=== PATIENT | male | born 1955 | race Caucasian/White ===

== ENCOUNTER → 2023-07-06 06:25 | Day surgery (SDC) | payer MEDICARE, SELFPAY | LOC: GI 06:25 | PROVIDERS: ATTENDING PHYSICIAN Surgery | DX: Z12.11 Encounter for screening for malignant neoplasm of colon (principal); Z86.010 Personal history of colon polyps; K64.8 Other hemorrhoids; D12.1 Benign neoplasm of appendix; D12.3 Benign neoplasm of transverse colon; K62.1 Rectal polyp; K63.5 Polyp of colon | CPT/HCPCS: 45385; 45380; 88305 ==

== ENCOUNTER → 2023-10-15 06:28 | Outpatient (REF) | payer MEDICARE, SELFPAY ==
[2023-10-15 12:05] LABS: Folate 8.5 ng/ml (2.76-20); Vitamin B12 313 pg/ml (239-931)
== END ==
LOC: REG 06:28
PROVIDERS: ATTENDING PHYSICIAN Internal Medicine
DX: Z86.73 Personal history of transient ischemic attack (TIA), and cerebral infarction without residual deficits (principal); R26.89 Other abnormalities of gait and mobility; R41.3 Other amnesia
CPT/HCPCS: 36415; 82607; 82746

== ENCOUNTER → 2023-11-30 17:36 | Outpatient (REF) | payer MEDICARE, SELFPAY | LOC: PAVMRI 17:36 | PROVIDERS: ATTENDING PHYSICIAN Internal Medicine | DX: I10 Essential (primary) hypertension (principal); C67.9 Malignant neoplasm of bladder, unspecified; Z86.73 Personal history of transient ischemic attack (TIA), and cerebral infarction without residual deficits; R26.89 Other abnormalities of gait and mobility; R41.3 Other amnesia | CPT/HCPCS: 70551 ==

== ENCOUNTER → 2024-02-03 06:45 | Outpatient (REF) | payer MEDICARE, SELFPAY | LOC: RAD 06:45 | PROVIDERS: ATTENDING PHYSICIAN Internal Medicine Critical Care Medicine; FAMILY PHYSICIAN Internal Medicine | DX: Z87.891 Personal history of nicotine dependence (principal) | CPT/HCPCS: 71271 ==

== ENCOUNTER 2024-05-09 13:15 | Emergency (ER) | payer OTHER, SELFPAY ==
[2024-05-09 13:17] VITALS: BP 108/67
[2024-05-09 13:50] VITALS: BP 115/69
[2024-05-09 13:51] VITALS: BMI 26.5
[2024-05-09 14:00] VITALS: BP 117/69
[2024-05-09] MEDS: DECADRON 10 MG IV (14:10)
--- NOTE | 2024-05-09 14:10 | ED.GENMED ---
History of Present Illness
General
Chief Complaint: Change in Mental Status
Time Seen by Provider: 05/09/24 13:36
History of Present Illness
History of Present Illness:
Patient is a 69-year-old male with history of prior CVA with no residual deficits, hypertension, hyperlipidemia, AAA recent subdural s/p craniotomy presenting to the emergency department with change in his mental status. Patient was found to have a
subdural and subarachnoid hemorrhage in March. On May 03 he had a craniotomy with subdural drain placed. It was removed without complication and he was discharged. Yesterday patient started to develop some confusion and slurring of his
speech. He was stuttering. He was also disoriented. He is on Keppra for his subdural. No recurrent falls. No trauma. No fevers chills. No numbness tingling. No weakness.
Past History
Past History
ED Past Medical History: COPD, CVA, HTN and Psychiatric
ED Past Surgical History: Other (Lung biopsy)
Social History
Tobacco: Smoker
Alcohol: Occasional
Personal:
Living: with family
Family History
Family History: Other (Noncontributory)
Phy Exam
Physical Exam
Physical Exam:
GENERAL: in no acute distress
HEENT: normocephalic, extraocular movements intact, moist oral mucosa
NECK: normal inspection
RESPIRATORY: no respiratory distress, clear to auscultation bilaterally
CARDIOVASCULAR: regular rate and rhythm
ABDOMEN/: soft, non-distended, non-tender to palpation, no rebound or guarding
EXTREMITIES: non-tender, no edema/swelling
NEUROLOGIC: awake and alert, oriented x 2 dysarthria, no obvious facial droop, pupils equal reactive, equal strength in upper and lower extremities, no sensory deficits, moves all extremities
SKIN: warm
Course
Orders/Labs/Results
Orders:
Orders
05/09/24 13:[address] [CT Head W/o Iv Contrast] Urgent
Comment:
Reason For Exam: hx of subdural hematoma
05/09/24 13:50
Urinalysis Reflex To Culture Urgent
Date Specimen was Collected: 05/09/24
Time Specimen was Collected: 13:53
05/09/24 14:05
Dexamethasone Sod Phosphate [Decadron] 10 mg IV NOW STA
05/09/24 14:06
Basic Metabolic Panel Urgent
Complete Blood Count/With Diff Urgent
05/09/24 14:15
Electrocardiogram (*1) Urgent
Reason for Study: TIA/Stroke
EKG- Treatment ONCE
Abnormal Lab Results
05/09/24
14:06
RBC 4.43 L 10^6/uL
(4.70-6.10)
Absolute Monos (auto) 0.8 H 10^3/uL
(0.1-0.6)
Lymphocytes % 20.1 L %
(20.5-51.1)
Monocytes % 11.7 H %
(1.7-9.3)
Glucose 122 H mg/dl
(70-99)
05/09/24 14:06
05/09/24 14:06
Vital Signs
Initial and Last Documented VS:
Initial Vital Signs
Temp Pulse Resp BP Pulse Ox
98 F 87 16 108/67 93
05/09/24 13:17 05/09/24 13:17 05/09/24 13:17 05/09/24 13:17 05/09/24 13:17
Last Documented Vital Signs
Temp Pulse Resp BP Pulse Ox
98 F 82 14 117/69 95
05/09/24 13:17 05/09/24 14:30 05/09/24 14:30 05/09/24 14:00 05/09/24 14:30
MDM/Problems Addressed
Differential Diagnosis Includes:
Patient is a 69-year-old male with recent subdural hematoma status postcraniotomy on May 03, prior stroke with no residual deficits presenting to the emergency department with new onset confusion dysarthria that started yesterday. Vitals
unremarkable and on exam patient does have significant dysarthria and is only oriented x 2. He is slow to respond to some questions. Concern for worsening bleed versus postop complication versus CVA. CT scan was obtained per my interpretation
there is significant amount of air as well as possible new subdural. I did discuss with radiology and their read as below. Given the swelling and shift will give Decadron. Regarding the subarachnoid and possible subacute hemorrhage placed a call
to patient's neurosurgeon Dr. Adair. There is a component of subacute infarct of the left temporal lobe which does fit patient's symptoms as well. Will also check blood work urine and EKG
CT HEAD:
New findings suggesting subacute infarct of the left temporal lobe.
Moderate-sized left subdural hematoma mostly chronic in appearance but with varying densities which may represent subacute hemorrhage versus postsurgical change. Associated intracranial air probably postsurgical change. Infection cannot be excluded.
Associated mass effect and midline shift as described above (5 mm shift to right)
left-sided craniotomy. New
Findings suggesting minimal subarachnoid hemorrhage in the superior right parietal region.
Findings suggesting small old left occipital lobe infarct. Stable
Nonacute sinusitis.
Discussed with stroke neurology at [place] as well as neurosurgery. They did evaluate patient CT imaging from 05/07 and the temporal infarct was seen there. Neurosurgery recommending ED to ED transfer to [facility]. Neurology recommended CTA
imaging here however neurosurgery requested CTA to be obtained once patient arrives at [facility]. I discussed with Dr. Rivera from the emergency department who excepted. Will fly if weather permits so patient can get there soon as possible.
On reevaluation patient without any changes to exam. Patient remains stable for transfer. Pt signed out to oncoming attending pendin transfer.
*Critical Care Note
Total Time (30-74mins, 75-104mins- exclusive of procedures): 55
comment:
Critical care statement: A total of 55 minutes of critical care time was provided for this patient. This includes management of unstable vital signs, evaluation of the patient at bedside, reviewing the patient's pertinent medical records, ordering
and reviewing studies, arranging urgent treatment with development of a management plan, evaluating patient's response to treatment, frequent reassessment, and discussion with consultants. This time was separate from time utilized to perform the
aforementioned documented procedures.
ED Attending Note
-
Portions of this chart may have been created with voice recognition software.� Occasional wrong word or��sound alike� substitutions may have occurred due to the inherent limitations of voice recognition software.
Discharge Plan
Departure
Patient Disposition: Acute [facility]
Date of Disposition: 05/09/24
Time of Disposition: 15:04
Discharge Problem:
Subdural hematoma, Subarachnoid hematoma, CVA (cerebral vascular accident)
Prescriptions:
No Action
aspirin 325 MG tablet
325 mg PO DAILY 0RF
finasteride 5 MG tablet
5 mg PO QPM
omeprazole 20 MG capsule,delayed release(DR/EC)
20 mg PO DAILY
atorvastatin 40 mg Tablet
40 mg PO QPM
metoprolol succinate 50 mg Tablet Extended Release 24 Hr
75 mg PO DAILY
carbamazepine 400 mg Tablet Extended Release 12 Hr
400 mg PO BID
tadalafil 5 mg Tablet
5 mg PO DAILY PRN (Reason: .bladder/prostate)
Patient Comments:
denies taking for ED
sildenafil 100 mg Tablet
100 mg PO PRN (Reason: ED)
Patient Comments:
patient states he last took this greater than 2 weeks ago
Referrals:
Jonathon Soria MD [Family Provider] -
Hospital Transfer
Other hospital: [facility]
I certify that the patient requires transfer: Yes
Discussed case with accepting physician: dr angy rivera
Reason for transfer: specialties available
Interventions
Interventions:
*Risk Screen - Suicide Last Done: 05/09/24 13:21
*Neglect/Abuse Screening Last Done: 05/09/24 13:21
ED- Neurological Assessment Last Done: 05/09/24 13:51
ED- Cardiac Assessment Last Done: 05/09/24 13:51
ED Swallowing Screen Last Done: 05/09/24 13:51
Discharge Date and Time
Print Language: PERSIAN
[2024-05-09 14:20] LABS: % Basophils 1.6 % (0-2); % Eosinophils 2.7 % (0-6); % Immature Granulocytes 0.4 % (0-0.5); % Lymphocytes 20.1 % (20.5-51.1); % Monocytes 11.7 % (1.7-9.3); % Neutrophils 63.5 % (42.2-75.2); Absolute Basophils 0.1 10^3/uL (0-0.2); Absolute Eosinophils 0.2 10^3/uL (0-0.7); Absolute Lymphocytes 1.4 10^3/uL (1.2-3.4); Absolute Monocytes 0.8 10^3/uL (0.1-0.6); Absolute Neutrophils 4.4 10^3/uL (1.4-6.5); Hematocrit 41.1 % (39.0-52.0); Hemoglobin 13.7 g/dL (13.0-18.0); Mean Corp Hgb Conc. 33.3 g/dL (33.0-37.0); Mean Corpuscular Hgb 30.9 pg (27.0-31.0); Mean Corpuscular Volume 92.8 fL (80.0-94.0); Mean Platelet Volume 9.5 fL (7.4-10.4); Nucleated Red Blood Cells % 0 % (-); Platelet Count 273 10^3/uL (130-400); Red Blood Cell Count 4.43 10^6/uL (4.70-6.10); Red Cell Dist. Width 13.2 % (11.5-14.5)
[2024-05-09 14:33] LABS: Blood Urea Nitrogen 20 mg/dl (9-20); Calcium 9.4 mg/dl (8.4-10.2); Carbon Dioxide 29 mmol/L (22-30); Chloride 103 mmol/L (98-107); Estimated Creatinine Clearance 96 ml/min; Glucose 122 mg/dl (70-99); Potassium 4.3 mmol/L (3.5-5.1); Sodium 138 mmol/L (135-145); eGFR > 60.00
[2024-05-09 15:00] VITALS: BP 118/69
== END 2024-05-09 15:41 | disposition short-term general hospital (02) ==
LOC: EMR 13:15
PROVIDERS: EMERGENCY PHYSICIAN Student in an Organized Health Care Education/Training Program; FAMILY PHYSICIAN Internal Medicine
DX: I62.00 Nontraumatic subdural hemorrhage, unspecified (principal); I60.9 Nontraumatic subarachnoid hemorrhage, unspecified; I63.9 Cerebral infarction, unspecified; I10 Essential (primary) hypertension; F17.200 Nicotine dependence, unspecified, uncomplicated; E78.5 Hyperlipidemia, unspecified; Z86.73 Personal history of transient ischemic attack (TIA), and cerebral infarction without residual deficits
CPT/HCPCS: 99291; 96374; 70450; 80048; 85025; 93005

== ENCOUNTER → 2024-08-01 10:45 | Outpatient (REF) | payer MEDICARE, SELFPAY ==
[2024-08-01 11:29] LABS: % Basophils 1.9 % (0-2); % Immature Granulocytes 0.2 % (0-0.5); % Lymphocytes 19.6 % (20.5-51.1); % Monocytes 12.3 % (1.7-9.3); Absolute Basophils 0.1 10^3/uL (0-0.2); Absolute Eosinophils 0.2 10^3/uL (0-0.7); Absolute Lymphocytes 1.2 10^3/uL (1.2-3.4); Absolute Monocytes 0.7 10^3/uL (0.1-0.6); Absolute Neutrophils 3.7 10^3/uL (1.4-6.5); Hematocrit 43.6 % (39.0-52.0); Hemoglobin 14.3 g/dL (13.0-18.0); Mean Corp Hgb Conc. 32.8 g/dL (33.0-37.0); Mean Corpuscular Hgb 30.5 pg (27.0-31.0); Mean Platelet Volume 9.3 fL (7.4-10.4); Nucleated Red Blood Cells % 0 % (-); Platelet Count 264 10^3/uL (130-400); Red Blood Cell Count 4.69 10^6/uL (4.70-6.10); Red Cell Dist. Width 13.3 % (11.5-14.5); White Blood Cell Count 5.9 10^3/uL (4.8-10.8)
[2024-08-01 11:54] LABS: Body Fluid Mononuclear 37.3 %; Body Fluid Polymorphonuclear 62.7 %; Body Fluid WBC 4210 /CUMM
[2024-08-01 11:55] LABS: Body Fluid Second Tech CMB
[2024-08-01 12:56] LABS: Erythrocyte Sed Rate 23 mm/hour (0-20)
[2024-08-01 13:57] LABS: Lyme Antibody Screen, EIA Negative (Negative)
== END ==
LOC: REG 10:45
PROVIDERS: ATTENDING PHYSICIAN Orthopaedic Surgery; FAMILY PHYSICIAN Internal Medicine
DX: M25.562 Pain in left knee (principal); M65.962 Unspecified synovitis and tenosynovitis, left lower leg
CPT/HCPCS: 36415; 85025; 85652; 86140; 86618; 89051; 89060

== ENCOUNTER → 2024-11-04 09:35 | Outpatient (REF) | payer MEDICARE, SELFPAY | LOC: RAD 09:35 | PROVIDERS: ATTENDING PHYSICIAN Internal Medicine | DX: R60.0 Localized edema (principal); J44.9 Chronic obstructive pulmonary disease, unspecified | CPT/HCPCS: 36415; 71046; 83880 ==

== ENCOUNTER → 2024-12-01 08:14 | Outpatient (REF) | payer MEDICARE, SELFPAY | LOC: HWRCS 08:14 | PROVIDERS: ATTENDING PHYSICIAN Nurse Practitioner; FAMILY PHYSICIAN Internal Medicine | DX: R06.09 Other forms of dyspnea (principal); R60.0 Localized edema | CPT/HCPCS: 93306 ==

== ENCOUNTER → 2025-02-03 09:15 | Outpatient (REF) | payer MEDICARE, SELFPAY | LOC: HWRAD 09:15 | PROVIDERS: ATTENDING PHYSICIAN Internal Medicine Critical Care Medicine; FAMILY PHYSICIAN Internal Medicine | DX: Z87.891 Personal history of nicotine dependence (principal) | CPT/HCPCS: 71271 ==